=== PATIENT | male | born 1945 | race Caucasian/White ===

== ENCOUNTER 2019-03-16 18:05 | Emergency (ER) | payer MEDICARE, BC ==
[2019-03-16] MEDS ORDERED: Sodium Chloride 0.9% 10 ML Syringe FLUSH PRN (18:10)
[2019-03-16 18:42] LABS: CHLORIDE,CL 102 mmol/L (98-107); SODIUM,NA 140 mmol/L (136-145)
[2019-03-16 18:43] LABS: ANION GAP 13.1 mmol/L (10-20)
--- NOTE | 2019-03-16 18:58 | EDM.PDOC ---
ED HPI GENERAL MEDICAL PROBLEM - General Time Seen by Provider: 03/16/19 18:53 Source of Information: Reports: Patient, Family History Limitations: Reports: No Limitations - History of Present Illness INITIAL COMMENTS - FREE TEXT/NARRATIVE: Pt. states that he was climbing on a ladder after it rained and the ladder slipped. He states that he was approx. 8 feet up in the air. He fell once, landing on his L side. He subsequently tried to climb it again and fell a second time, injuring his L side further. He complains of L anterior, lateral, posterior chest and abdominal pain, from area of axilla to approx. belt line. Denies striking his head. No LOC. Denies any midline back pain. Denies any c- spine pain. He complains of some crepitus to his L anterior upper chest. No substernal chest pain. No shortness of breath. He states that this happened just prior to coming to ED. Onset: Today Onset Date: 03/16/19 Location: Reports: Chest, Abdomen, Pelvis Quality: Reports: Ache, Dull Improves with: Reports: Rest Worsens with: Reports: Movement Left Thoracic Pain Score (Numeric/FACES): 2 - Related Data Allergies Allergy/AdvReac Type Severity Reaction Status Date / Time tamsulosin HCl [From Flomax] Allergy Cannot Verified 03/16/19 20:19 Remember Home Meds: Home Meds Allopurinol [Zyloprim] 100 mg PO DAILY 05/27/13 [History] Aspirin 0.5 tab PO DAILY 05/27/13 [History] Benazepril/Hydrochlorothiazide [Benazepril-HCTZ 20-12.5 MG Tablet] 1 tab PO DAILY 05/27/13 [History] Calcium Carbonate [Fzny-Aps-665] 500 mg PO BID 05/27/13 [History] Fluticasone Propionate [Flonase] 50 meter NASBOTH DAILY 05/27/13 [History] Ibuprofen 200 mg PO Q4H PRN 05/27/13 [History] Simvastatin [Zocor] 20 mg PO DAILY 05/27/13 [History] Acetaminophen 500 mg PO Q4H PRN 03/16/19 [History] Carbidopa/Levodopa [Carbidopa-Levo 25-100 mg Odt] 1.5 tab PO BEDTIME 03/16/19 [ History] Multivitamin [Multivitamins] 1 each PO DAILY 03/16/19 [History] ED ROS GENERAL - Review of Systems Review Of Systems: See Below Constitutional: Reports: No Symptoms HEENT: Reports: No Symptoms Respiratory: Reports: Pleuritic Chest Pain. Denies: Shortness of Breath, Hemoptysis Cardiovascular: Reports: No Symptoms Endocrine: Reports: No Symptoms GI/Abdominal: Reports: Abdominal Pain : Reports: No Symptoms Musculoskeletal: Reports: No Symptoms Skin: Reports: No Symptoms Neurological: Reports: No Symptoms Psychiatric: Reports: No Symptoms Hematologic/Lymphatic: Reports: No Symptoms Immunologic: Reports: No Symptoms ED EXAM, GENERAL - Physical Exam Exam: See Below Exam Limited By: No Limitations General Appearance: Alert, WD/WN, No Apparent Distress Nose: Normal Inspection, No Blood Throat/Mouth: Normal Inspection, Normal Lips, Normal Teeth, Normal Oropharynx, Normal Voice, No Airway Compromise Head: Atraumatic, Normocephalic Neck: Normal Inspection, Supple, Non-Tender, Full Range of Motion Respiratory/Chest: No Respiratory Distress, Lungs Clear, Normal Breath Sounds, No Accessory Muscle Use, Other (anterior, lateral and posterior chest pain to palpation. Abrasions noted to this area. ) Cardiovascular: Normal Peripheral Pulses, Regular Rate, Rhythm, No Edema, No Gallop, No JVD, No Murmur, No Rub GI/Abdominal: Normal Bowel Sounds, No Mass, Tender, Other (abrasions noted to lateral aspect of the abdomen. No masses noted. No rebound tenderness. ) (Male) Exam: Deferred Rectal (Males) Exam: Deferred Back Exam: Normal Inspection, Full Range of Motion Extremities: Normal Inspection, Normal Range of Motion, Non-Tender, No Pedal Edema, Normal Capillary Refill Neurological: Alert, Oriented, CN II-XII Intact, Normal Cognition, No Motor/ Sensory Deficits Psychiatric: Normal Affect, Normal Mood Skin Exam: Warm, Dry, Intact, Other (abrasions. See above.) Lymphatic: No Adenopathy Course - Vital Signs Last Recorded V/S: Last Vital Signs Temp 36.9 C 03/16/19 18:05 Pulse 75 03/16/19 19:55 Resp 16 03/16/19 19:55 BP 153/77 H 03/16/19 20:18 Pulse Ox 99 03/16/19 19:55 - Orders/Labs/Meds Orders: Active Orders 24 hr Category Date Time Status Peripheral IV Insertion Adult [OM.PC] Routine Oth 03/16/19 18:10 Ordered Labs: Laboratory Tests 03/16/19 03/16/19 Range/Units 18:16 18:16 WBC 8.5 (4.0-10.0) x10^3/uL RBC 4.34 L (4.5-6.0) x10^6/uL Hgb 14.3 (14.0-18.0) g/dL Hct 41.4 (40.0-52.0) % MCV 95.4 H (78.0-93.0) fL MCH 32.9 H (26.0-32.0) pg MCHC 34.5 (32.0-36.0) g/dL RDW Coeff of Arley 11.8 (10.0-15.0) % Plt Count 276 (130-400) x10^3/uL Neut % (Auto) 35.9 L (50.0-80.0) % Lymph % (Auto) 51.2 H (25.0-50.0) % [place] % (Auto) 9.5 (2.0-11.0) % Eos % (Auto) 3.2 (0.0-4.0) % Baso % (Auto) 0.2 (0.2-1.2) % Sodium 140 (136-145) mmol/L Potassium 4.1 (3.5-5.1) mmol/L Chloride 102 (98-107) mmol/L Carbon Dioxide 29 (21-32) mmol/L Anion Gap 13.1 (10-20) mmol/L BUN 13 (7-18) mg/dL Creatinine 1.0 (0.70-1.30) mg/dL Est Cr Clr Drug Dosing TNP Estimated GFR (MDRD) > 60 Glucose 99 (74-106) mg/dL Calcium 9.1 (8.5-10.1) mg/dL Corrected Calcium 9.10 (8.5-10.1) mg/dL Total Bilirubin 0.3 (0.2-1.0) mg/dL AST 21 (15-37) U/L ALT 34 (16-63) U/L Alkaline Phosphatase 62 (46-116) U/L Total Protein 8.2 (6.4-8.2) g/dL Albumin 4.0 (3.4-5.0) g/dL Globulin 4.2 Albumin/Globulin Ratio 0.95 Meds: Medications Discontinued Medications Generic Name Dose Route Start Last Admin Trade Name Teodoro PRN Reason Stop Dose Admin Hydrocodone Bitart/Acetaminophen 1 packet 03/16/19 20:24 03/16/19 20:27 Take Home: Acetaminophen/Hydrocodone 325-10mg PO 03/16/19 20:25 1 packet ONETIME ONE Administration Iopamidol 100 ml 03/16/19 19:31 03/16/19 19:32 Isovue-300 (61%) IVPUSH 03/16/19 19:32 100 ml ONETIME ONE Administration Morphine Sulfate 4 mg 03/16/19 19:03 03/16/19 19:07 Morphine IVPUSH 03/16/19 19:04 4 mg ONETIME ONE Administration Sodium Chloride 10 ml 03/16/19 18:10 Saline Flush FLUSH ASDIRECTED PRN Keep Vein Open - Radiology Interpretation Free Text/Narrative:: CT chest, abdomen and pelvis with IV contrast was obtained. 5th, 6th 7th L sided rib fractures. No pulmonary or intraabdominal injury noted. No pelvic trauma noted. Departure - Departure Time of Disposition: 20:18 Disposition: Home, Self-Care 01 Clinical Impression: Rib fractures - Discharge Information Instructions: Acetaminophen; Hydrocodone tablets or capsules, Rib Fracture, [id number] Referrals: Laquita Rodriguez DO [Primary Care Provider] - Forms: ED Department Discharge Additional Instructions: [place] 10/325mg 1 every 4-6 hours as needed for pain. Hold a pillow up against your chest when you are coughing, sneezing, etc. I would try heat to the area as needed. Use incentive spirometer every couple of hours and work on taking deep breaths to decrease chances of pneumonia. It is important to be up walking around the house every hour or so as well. - My Orders Last 24 Hours: My Active Orders 03/16/19 18:10 Peripheral IV Insertion Adult [OM.PC] Routine - Assessment/Plan Last 24 Hours: My Active Orders 03/16/19 18:10 Peripheral IV Insertion Adult [OM.PC] Routine Plan: [place] 10/325mg 1 every 4-6 hours as needed for pain. Hold a pillow up against your chest when you are coughing, sneezing, etc. I would try heat to the area as needed. Use incentive spirometer every couple of hours and work on taking deep breaths to decrease chances of pneumonia. It is important to be up walking around the house every hour or so as well.
[2019-03-16] MEDS ORDERED: Morphine 4 MG/ML Syringe IVPUSH ONE (19:03)
[2019-03-16] MEDS ORDERED: Iopamidol 612 MG/ML 100 ML Bottle IVPUSH ONE (19:31)
--- NOTE | 2019-03-16 20:20 | CT ---
[id number] CT/CT Chest Abdomen Pelvis W IV EXAM: CT Chest Abdomen Pelvis W IV CLINICAL DATA: FALL, CONTUSIONS TO ABDOMEN AND L LATERAL CHEST. COMPARISON STUDY: None. FINDINGS: Dependent atelectasis at the lung bases bilaterally. No pleural effusion, pneumothorax, or pulmonary contusion. No parenchymal airspace consolidation. The heart is enlarged. Coronary artery disease. Atherosclerotic calcifications of the aorta and its branches. No pneumomediastinum. No pericardial effusion. No lymphadenopathy. Abdomen and pelvis: Multiple hypodense lesions scattered throughout the liver. These are nonspecific but likely represent cysts. The spleen, pancreas, adrenal glands, gallbladder are unremarkable. Bilateral peripelvic and cortical renal cysts. Punctate nonobstructing left renal calculus. No hydronephrosis or hydroureter. No evidence of bowel injury, obstruction, or inflammation. Colonic diverticulosis without evidence of acute diverticulitis. Urinary bladder is intact. No lymphadenopathy, free fluid, or pneumoperitoneum. Bones and soft tissues: There are nondisplaced left lateral fractures of ribs 5, 6 and 7. IMPRESSION: There are nondisplaced left lateral fractures of ribs 5, 6 and 7. No pneumothorax. Jakob Ruiz DO 03/16/192018 Thank you for allowing us to participate in the care of your patient.
[2019-03-16 20:21] VITALS: BP 213/92
[2019-03-16] MEDS ORDERED: Take Home: Acetaminophen/HYDROcodone 325-10 MG, 5 Tab Pack PO ONE (20:24)
[2019-03-16 20:27] VITALS: PULSE 75
== END 2019-03-16 20:45 | disposition home or self-care (01) ==
LOC: VM.ED 18:05
DX: S22.42XA Multiple fractures of ribs, left side, initial encounter for closed fracture (principal); Z79.82 Long term (current) use of aspirin; Z79.899 Other long term (current) drug therapy; Z88.8 Allergy status to other drugs, medicaments and biological substances; W11.XXXA Fall on and from ladder, initial encounter
CPT/HCPCS: 71260; 74177; 80053; 85025; 96374; 99283; A9270; J2270; Q9967; 36415; 99284-GF